=== PATIENT | female | born 2000 | race Caucasian/White ===

== ENCOUNTER 2024-06-15 20:04 | Emergency (ER) | payer OTHER, SELFPAY ==
[2024-06-15 20:04] VITALS: BP 149/93; PULSE 100; TEMP 36.9; O2SAT 100; BMI 31.9
[2024-06-15 20:23] LABS: HCG Qualitative Urine* NEGATIVE (NEGATIVE); Internal Control Within Normal Limits
[2024-06-15] MEDS: ONDANSETRON 4 MG RAPDIS TABLET PO (20:28)
[2024-06-15] MEDS: KETOROLAC TROMETHAMINE 60 MG/2 ML VIAL IM (20:28)
[2024-06-15 21:12] VITALS: BP 123/80; PULSE 95; O2SAT 99
--- NOTE | 2024-06-15 21:18 | ED.ABDPAIN1 ---
HPI - Abdominal Pain General Chief Complaint: Abdominal Pain Stated Complaint: ABDOMINAL PAIN Time Seen by Provider: 06/15/24 20:10 Source: patient Mode of arrival: ambulance Limitations: no limitations History of Present Illness HPI narrative: 23-year-old female is brought to the emergency room by chan with chief complaint of abdominal pain. Chan reports she was called to the house after patient had what appeared to be a vasovagal episode after being on the commode. She states she had a normal bowel movement yesterday. She had abdominal cramping today with a history of ovarian cysts in the past and thought she may have had to use the restroom went and sat on the toilet about 15 minutes or so got up and got lightheaded. Her mom then called the chan. Patient was brought in here to the emergency room she had no pain told chan she had pain of 3 out of 10. Describes the pain as a cramping sensation. She is afebrile. Abdomen soft nontender palpation Related Data Previous Rx's ?Medication ?Instructions ?Recorded dicyclomine 20 mg tablet 20 mg PO BID PRN abdominal pain 06/15/24 #14 tabs docusate sodium 100 mg capsule 100 mg PO DAILY #20 caps 06/15/24 (Colace) Allergies Allergy/AdvReac Type Severity Reaction Status Date / Time Penicillins Allergy Intermediate Rash Verified 06/15/24 20:14 Review of Systems ROS Narrative All Systems are negative except as noted/marked.All systems reviewed and otherwise negative Status of ROS 10 or more systems reviewed and unremarkable except as noted in history and below PFSH PFSH Social History Little interest or pleasure in doing things: not at all Feeling down, depressed, or hopeless: not at all Exam Narrative Exam Narrative: All Systems are negative except as noted/marked.All systems reviewed and otherwise negative Nurses note and vital signs reviewed and patient is not hypoxic. General: The patient appears well and in no apparent distress. Patient is resting comfortably on cart. Skin: Warm, dry, no pallor noted. There is no rash noted. Head: Normocephalic, atraumatic Eye: Normal conjunctiva, no drainage, EOMI. PERRL Ears, Nose, Mouth, and Throat: oral mucosa is moist. Nares patent. Mouth without vesicles. Ear canals patent. Tm's without Erythema Cardiovascular: Regular Rate and Rhythm Respiratory: Patient is in no distress, no accessory muscle use, lungs are clear to auscultation, no wheezing, rales or rhonchi Back: non-tender, no CVA tenderness bilaterally to percussion. GI: Normal bowel sounds, no tenderness to palpation, no masses appreciated. No rebound, guarding, or rigidity noted. Musculoskeletal: The patient has no evidence of calf tenderness, no pitting edema, symmetrical pulses noted bilaterally Neurological: A&O x4, normal speech Psychiatric: Cooperative Constitutional Vital Signs, click to edit/add: Last Vital Signs Temp 98.4 F 06/15/24 20:04 Pulse 95 H 06/15/24 21:12 Resp 16 06/15/24 21:12 BP 123/80 06/15/24 21:12 Pulse Ox 99 06/15/24 21:12 O2 Del Method Room Air 06/15/24 21:12 Course Vital Signs Vital signs: Vital Signs Temperature 98.4 F 06/15/24 20:04 Pulse Rate 100 H 06/15/24 20:04 Respiratory Rate 20 06/15/24 20:04 Blood Pressure 149/93 H 06/15/24 20:04 Pulse Oximetry 100 06/15/24 20:04 Oxygen Delivery Method Room Air 06/15/24 20:04 Temperature 98.4 F 06/15/24 20:04 Pulse Rate 95 H 06/15/24 21:12 Respiratory Rate 16 06/15/24 21:12 Blood Pressure 123/80 06/15/24 21:12 Pulse Oximetry 99 06/15/24 21:12 Oxygen Delivery Method Room Air 06/15/24 21:12 MDM - Abdominal Pain MDM Narrative Medical decision making narrative: 23-year-old female is brought to the emergency room by chan with chief complaint of abdominal pain. Chan reports she was called to the house after patient had what appeared to be a vasovagal episode after being on the commode. She states she had a normal bowel movement yesterday. She had abdominal cramping today with a history of ovarian cysts in the past and thought she may have had to use the restroom went and sat on the toilet about 15 minutes or so got up and got lightheaded. Her mom then called the chan. Patient was brought in here to the emergency room she had no pain told chan she had pain of 3 out of 10. Describes the pain as a cramping sensation. She is afebrile. Abdomen soft nontender palpation The emergency room urine was obtained she is not currently . Patient states she has been off control for approximately 3 months. She describes a diffuse lower abdominal pain. X-ray was performed no acute abnormalities other than stool noted on x-ray. I believe patient has abdominal cramping and pain from constipation. She will be given a prescription for Colace and Bentyl. Medicated here with Toradol. I also told patient to follow-up with her primary care physician for evaluation of ovarian cyst. She has not seen her [employer] for several years. Patient and mom at bedside agree with plan of care. Patient's abdomen soft nontender to palpation. She shows no signs of acute distress. Denies any burning with urination. Denies nausea or vomiting at this time. Differential Diagnosis Differential diagnosis: Likely abdominal pain and other (constipation, ovarian cyst) Medical Records Attestation: I reviewed the patient's medical records. Lab Data Labs: Lab Results 06/15/24 Range/Units 20:15 Urine HCG, Qual Negative (NEGATIVE) Discharge Plan Discharge Chief Complaint: Abdominal Pain Clinical Impression: Abdominal pain, Constipation Patient Disposition: Home, Self-Care Time of Disposition Decision: 21:07 Condition: Good Mode of Transportation: Private Vehicle Prescriptions / Home Meds: New docusate sodium [Colace] 100 mg capsule 100 mg PO DAILY Qty: 20 0RF dicyclomine 20 mg tablet 20 mg PO BID PRN (Reason: abdominal pain) Qty: 14 0RF Print Language: Turkish Instructions: Constipation (ED), Abdominal Pain (ED) Referrals: Patel Farias MD [Physician] - 1 week Discharge Date/Time: 06/15/24 21:14
== END 2024-06-15 21:14 | disposition home or self-care (01) ==
PROVIDERS: Physician Assistant; Emergency Provider Internal Medicine; PCP Nurse Practitioner Family
DX: K59.00 Constipation, unspecified (principal); R10.9 Unspecified abdominal pain
CPT/HCPCS: 74022; 81001; 84703; 96372; 99285; J1885; Q0162